=== PATIENT | male | born 1975 | race Hispanic/Latino ===

== ENCOUNTER 2018-02-28 11:28 | Emergency (ER) | payer BC ==
[2018-02-28 11:56] LABS: #Basophils 0.1 thou/uL (0.0-0.2); #Eosinphils 0.1 thou/uL (0.0-0.7); #Lymphocytes 1.7 thou/uL (1.20-3.40); #Monocytes 0.5 thou/uL (0.11-0.59); #Neutrophils 5.6 thou/uL (1.40-6.50); %Basophils 0.7 % (0.0-1.0); %Eosinophils 0.6 % (0.0-10.0); %Monocytes 6.4 % (0.0-10.0); %Neutrophils 70.2 % (42.0-75.0); Hemoglobin 18.2 g/dL (14.0-18.0); Mean Corpuscular HGB CONC 35.2 g/dL (32.0-36.0); Mean Corpuscular Hemoglobin 32.3 pg (27.0-31.0); Mean Corpuscular Volume 91.7 fl (80.0-94.0); Mean Platelet Volume 8.6 fL (7.4-10.4); Platelet Count 178 thou/uL (130-400); RBC Distribution Width 11.3 % (11.5-14.5); Red Blood Cell (RBC) Count 5.64 mill/uL (4.70-6.10); White Blood Cell (WBC) Count 7.9 thou/uL (4.8-10.8)
[2018-02-28 12:26] LABS: ALT (SGPT) 180 U/L (8-55); AST (SGOT) 61 U/L (5-34); Albumin 4.5 g/dL (3.5-5.0); Alkaline Phosphatase 67 U/L (40-150); Anion Gap 18 mmol/L (10-20); BUN (Urea Nitrogen) 16 mg/dL (8.9-20.6); Bilirubin, Total 0.9 mg/dL (0.2-1.2); Calc. Creatinine Clearance 0 mL/min (70-130); Carbon Dioxide 26 mmol/L (22-29); Chloride 98 mmol/L (98-107); Estimated GFR-MDRD 73; Globulin 3.5 g/dL (2.4-3.5); Glucose 317 mg/dL (70-105); Potassium 3.9 mmol/L (3.5-5.1); Sodium 138 mmol/L (136-145)
== END 2018-02-28 13:06 | disposition home or self-care (01) ==
LOC: ERS 11:28
DX: E11.65 Type 2 diabetes mellitus with hyperglycemia (principal); K21.9 Gastro-esophageal reflux disease without esophagitis; E78.5 Hyperlipidemia, unspecified; I10 Essential (primary) hypertension; Z79.4 Long term (current) use of insulin; Z79.899 Other long term (current) drug therapy
CPT/HCPCS: 36415; 36416; 80053; 82010; 85025; 99284

== ENCOUNTER 2018-04-01 17:00 | Outpatient (CLI) | payer BC | END 2018-04-01 17:01 | disposition home or self-care (01) | LOC: BICRAD 17:00 | PROVIDERS: ATTEND Internal Medicine | DX: M25.512 Pain in left shoulder (principal) ==

== ENCOUNTER 2018-08-19 08:39 | Emergency (ER) | payer BC ==
--- NOTE | 2018-08-19 09:53 | RAD ---
RIGHT KNEE 4 VIEWS: History Knee pain starting Wednesday. FINDINGS: Joint spaces are well preserved. There are no signs of fracture of dislocation or joint effusion. IMPRESSION: Unremarkable right knee. POS: [facility]
== END 2018-08-19 09:43 | disposition home or self-care (01) ==
LOC: ERS 08:39
DX: M76.9 Unspecified enthesopathy, lower limb, excluding foot (principal); E11.9 Type 2 diabetes mellitus without complications; K21.9 Gastro-esophageal reflux disease without esophagitis; E78.5 Hyperlipidemia, unspecified; I10 Essential (primary) hypertension; Z79.4 Long term (current) use of insulin; Z79.899 Other long term (current) drug therapy

== ENCOUNTER 2018-09-14 09:54 | Outpatient (CLI) | payer BC ==
--- NOTE | 2018-09-14 10:49 | RAD ---
CHEST TWO VIEWS: 09/14/2018 HISTORY: Right-sided pain. Fell on Wednesday. COMPARISON: None. FINDINGS: No pneumothorax, pleural fluid, focal consolidation, or alveolar edema. Heart and mediastinal contou rs appear within normal limits. IMPRESSION: No acute findings. POS: [facility]
--- NOTE | 2018-09-14 11:43 | RAD ---
THREE VIEWS OF THE RIGHT RIBS: Date: 09-14-18 Comparison: None. History: Fall, trauma, pain, right sided rib injury. FINDINGS: Three dedicated radiographs of the right ribs provided. There is subtle irregularity involving the anterior most aspect of the right 8th rib of image 2 of 3. A subtle fracture cannot be excluded but artifact is favored. Otherwise, no osseous abnormality is seen. IMPRESSION: Questionable subtle fracture involving the anterior aspect of the right 8th rib versus artifact. POS: [facility]
== END 2018-09-14 09:55 | disposition home or self-care (01) ==
LOC: BICRAD 09:54
DX: R07.81 Pleurodynia (principal)
CPT/HCPCS: 71046

== ENCOUNTER 2021-11-05 16:13 | Outpatient (CLI) | payer BC | END 2021-11-05 16:14 | disposition home or self-care (01) | LOC: BICRAD 16:13 | PROVIDERS: ATTEND Nurse Practitioner Family | DX: M79.671 Pain in right foot (principal); S92.354A Nondisplaced fracture of fifth metatarsal bone, right foot, initial encounter for closed fracture ==

== ENCOUNTER 2025-05-11 17:58 | Inpatient (IN) | payer BC, SELFPAY ==
[2025-05-11 18:55] LABS: #Basophils 0.03 10x3/uL (0.0-0.2); #Eosinophils 0.14 10x3/uL (0.0-0.7); #Monocytes 0.81 10x3/uL (0.11-0.59); #Neutrophils 5.38 10x3/uL (1.40-6.50); %Basophils 0.4 % (0.0-1.0); %Eosinophils 1.7 % (0.0-10.0); %Lymphocytes 22.7 % (21.0-51.0); %Monocytes 9.8 % (0.0-10.0); %Neutrophils 65.0 % (42.0-75.0); Hematocrit 44.5 % (42.0-52.0); Hemoglobin 15.2 g/dL (14.0-18.0); Mean Corpuscular Hemoglobin 29.7 pg (27.0-31.0); Mean Corpuscular Volume 87.1 fL (78.0-98.0); Platelet Count 190 10x3/uL (130-400); Red Blood Cell (RBC) Count 5.11 mill/uL (4.70-6.10); White Blood Cell (WBC) Count 8.27 10x3/uL (4.8-10.8)
[2025-05-11 19:11] LABS: ALT (SGPT) 51 U/L (Less than 45); AST (SGOT) 31 U/L (11-34); Albumin 4.2 g/dL (3.1-4.5); Alkaline Phosphatase 55 U/L (40-110); Anion Gap 21 mmol/L (10-20); BUN (Urea Nitrogen) 60 mg/dL (8.4-25.7); Bilirubin, Total 0.5 mg/dL (0.3-1.2); Calc. Creatinine Clearance 0 mL/min (70-130); Calcium 9.7 mg/dL (7.8-10.44); Carbon Dioxide 24 mmol/L (22-29); Chloride 96 mmol/L (98-107); Globulin 3.4 g/dL (2.4-3.5); Glucose 197 mg/dL (70-105); Potassium 3.9 mmol/L (3.5-5.1); Sodium 137 mmol/L (136-145)
[2025-05-11] MEDS ORDERED: Aspirin Chewable 81 MG TAB ONE (19:25)
[2025-05-11] MEDS ORDERED: Dextrose 50% Abboject 50 ML SYRINGE SLOW IVP PRN (21:57)
[2025-05-11] MEDS ORDERED: Ondansetron PF 4 MG/2 ML Vial IVP PRN (21:57)
[2025-05-11] MEDS ORDERED: Glucagon 1 MG/ML KIT IM PRN (21:57)
[2025-05-11 22:33] VITALS: BMI 26.9
[2025-05-11] MEDS: ALPRAZolam 0.25 MG TAB PO PRN (23:11)
[2025-05-12 05:00] LABS: #Basophils 0.05 10x3/uL (0.0-0.2); #Eosinophils 0.18 10x3/uL (0.0-0.7); #Monocytes 0.83 10x3/uL (0.11-0.59); #Neutrophils 3.59 10x3/uL (1.40-6.50); %Basophils 0.7 % (0.0-1.0); %Eosinophils 2.6 % (0.0-10.0); %Lymphocytes 32.4 % (21.0-51.0); %Monocytes 12.0 % (0.0-10.0); %Neutrophils 52.0 % (42.0-75.0); Hematocrit 40.3 % (42.0-52.0); Hemoglobin 13.7 g/dL (14.0-18.0); Mean Corpuscular Hemoglobin 30.4 pg (27.0-31.0); Mean Corpuscular Volume 89.4 fL (78.0-98.0); Platelet Count 159 10x3/uL (130-400); Red Blood Cell (RBC) Count 4.51 mill/uL (4.70-6.10); White Blood Cell (WBC) Count 6.91 10x3/uL (4.8-10.8)
[2025-05-12 05:13] LABS: Anion Gap 15 mmol/L (10-20); BUN (Urea Nitrogen) 65 mg/dL (8.4-25.7); Calc. Creatinine Clearance 52 mL/min (70-130); Calcium 8.5 mg/dL (7.8-10.44); Carbon Dioxide 23 mmol/L (22-29); Chloride 99 mmol/L (98-107); Glucose 182 mg/dL (70-105); Potassium 3.6 mmol/L (3.5-5.1); Sodium 133 mmol/L (136-145)
[2025-05-12] MEDS ORDERED: Non-Formulary Item 1 EACH (Aspirin [Aspirin] 81 MG Tablet) PO SCH (09:00)
[2025-05-12] MEDS: Aspirin Chewable 81 MG TAB PO SCH (09:21)
[2025-05-12] MEDS ORDERED: Iopamidol-370 76% 500 ML MDV (1 ML CHARGE) ONE (13:47)
[2025-05-12 14:20] VITALS: BMI 26.9
[2025-05-13 05:36] LABS: #Basophils 0.04 10x3/uL (0.0-0.2); #Eosinophils 0.18 10x3/uL (0.0-0.7); #Monocytes 0.74 10x3/uL (0.11-0.59); #Neutrophils 3.91 10x3/uL (1.40-6.50); %Basophils 0.6 % (0.0-1.0); %Eosinophils 2.6 % (0.0-10.0); %Lymphocytes 28.9 % (21.0-51.0); %Monocytes 10.8 % (0.0-10.0); %Neutrophils 56.8 % (42.0-75.0); Hematocrit 40.3 % (42.0-52.0); Hemoglobin 13.3 g/dL (14.0-18.0); Mean Corpuscular Hemoglobin 29.7 pg (27.0-31.0); Mean Corpuscular Volume 90.0 fL (78.0-98.0); Platelet Count 149 10x3/uL (130-400); Red Blood Cell (RBC) Count 4.48 mill/uL (4.70-6.10); White Blood Cell (WBC) Count 6.88 10x3/uL (4.8-10.8)
[2025-05-13 05:47] LABS: Anion Gap 13 mmol/L (10-20); BUN (Urea Nitrogen) 48 mg/dL (8.4-25.7); Calc. Creatinine Clearance 68 mL/min (70-130); Calcium 8.9 mg/dL (7.8-10.44); Carbon Dioxide 25 mmol/L (22-29); Chloride 103 mmol/L (98-107); Glucose 195 mg/dL (70-105); Potassium 4.7 mmol/L (3.5-5.1); Sodium 136 mmol/L (136-145)
[2025-05-13] MEDS: glipiZIDE XL 5 mg ER.TAB PO SCH ×2 (09:41→16:34)
[2025-05-13] MEDS ORDERED: HYDROcodone/Acetaminophen 5/325 mg Tablet PO PRN (15:04)
[2025-05-13] MEDS: Methocarbamol 500 MG TAB PO SCH ×2 (16:34→20:30)
[2025-05-14 06:15] LABS: #Basophils 0.04 10x3/uL (0.0-0.2); #Eosinophils 0.15 10x3/uL (0.0-0.7); #Monocytes 0.71 10x3/uL (0.11-0.59); #Neutrophils 3.95 10x3/uL (1.40-6.50); %Basophils 0.6 % (0.0-1.0); %Eosinophils 2.3 % (0.0-10.0); %Lymphocytes 25.2 % (21.0-51.0); %Monocytes 10.9 % (0.0-10.0); %Neutrophils 60.5 % (42.0-75.0); Hematocrit 42.3 % (42.0-52.0); Hemoglobin 14.3 g/dL (14.0-18.0); Mean Corpuscular Hemoglobin 29.9 pg (27.0-31.0); Mean Corpuscular Volume 88.3 fL (78.0-98.0); Platelet Count 172 10x3/uL (130-400); Red Blood Cell (RBC) Count 4.79 mill/uL (4.70-6.10); White Blood Cell (WBC) Count 6.52 10x3/uL (4.8-10.8)
[2025-05-14 06:40] LABS: Anion Gap 15 mmol/L (10-20); BUN (Urea Nitrogen) 43 mg/dL (8.4-25.7); Calc. Creatinine Clearance 70 mL/min (70-130); Calcium 9.3 mg/dL (7.8-10.44); Carbon Dioxide 23 mmol/L (22-29); Cardiac Risk 7.4 (Less than 4.5); Chloride 101 mmol/L (98-107); Cholesterol 221 mg/dl (< 200 Desired); Glucose 197 mg/dL (70-105); HDL Cholesterol 30 mg/dL (>60 Neg Risk); Potassium 4.9 mmol/L (3.5-5.1); Sodium 134 mmol/L (136-145); Triglycerides 566 mg/dL (Less than 150)
[2025-05-14 08:32] VITALS: TEMP 97.9
[2025-05-14] MEDS: glipiZIDE XL 5 mg ER.TAB PO SCH (09:16)
[2025-05-14] MEDS: metFORMIN XR 500 MG ER.TAB PO SCH (09:16)
[2025-05-14] MEDS: Lisinopril 20 MG TAB PO SCH (11:58)
[2025-05-14 12:40] VITALS: BP 140/96
[2025-05-14] MEDS ORDERED: Rosuvastatin 20 MG TAB PO SCH (21:00)
[2025-05-15] MEDS ORDERED: metFORMIN XR 500 MG ER.TAB PO SCH (08:00)
== END 2025-05-14 13:41 | disposition home or self-care (01) | DRG 315 ==
LOC: ERS 17:58 → OBS 20:25 → OBSVTOIN 05-13 15:33
PROVIDERS: ADMIT Internal Medicine; ATTEND Hospitalist
DX: I95.9 Hypotension, unspecified (principal); N17.9 Acute kidney failure, unspecified; R55 Syncope and collapse; R07.89 Other chest pain; E11.9 Type 2 diabetes mellitus without complications; K21.9 Gastro-esophageal reflux disease without esophagitis; E78.5 Hyperlipidemia, unspecified; M47.812 Spondylosis without myelopathy or radiculopathy, cervical region; I10 Essential (primary) hypertension; F10.90 Alcohol use, unspecified, uncomplicated; Z79.4 Long term (current) use of insulin; Z98.890 Other specified postprocedural states; Z79.84 Long term (current) use of oral hypoglycemic drugs; Z79.899 Other long term (current) drug therapy
CPT/HCPCS: 36415; 36416; 70450; 70551; 71045; 71275; 72141; 80048; 80053; 80061; 83036; 84443; 84484; 85025; 93005; 93306; 96374; G0378; J1815; J2060; J7120; Q9967